=== PATIENT | male | born 1995 | race African-American/Black ===

== ENCOUNTER 2020-11-23 03:50 | Emergency (ER) | payer MEDICAID, OTHER ==
[2020-11-23] MEDS ORDERED: DOXY100C2 MT (06:39)
== END 2020-11-23 04:51 | disposition left against medical advice (07) ==
LOC: ER 03:50
DX: R68.89 Other general symptoms and signs (principal); Z53.21 Procedure and treatment not carried out due to patient leaving prior to being seen by health care provider

== ENCOUNTER 2020-11-23 05:27 | Emergency (ER) | payer MEDICAID ==
[~2020-11-23] VITALS: Ht 167.6 cm; Wt 76.0 kg
[2020-11-23 06:00] VITALS: BP 136/81
[2020-11-23] MEDS ORDERED: DOXY100C2 MT (06:39)
[2020-11-23] MEDS ORDERED: DOXYCYCLINE HYCLATE 100MG CAPSULE PO ONE (06:45)
== END 2020-11-23 07:02 | disposition home or self-care (01) ==
LOC: ER 05:27
DX: S80.861A Insect bite (nonvenomous), right lower leg, initial encounter (principal); W57.XXXA Bitten or stung by nonvenomous insect and other nonvenomous arthropods, initial encounter; Y93.89 Activity, other specified; Y92.89 Other specified places as the place of occurrence of the external cause; Y99.8 Other external cause status; F31.9 Bipolar disorder, unspecified
CPT/HCPCS: 99283

== ENCOUNTER 2021-02-22 16:54 | Emergency (ER) | payer MEDICAID ==
[~2021-02-22] VITALS: Ht 172.7 cm; Wt 77.0 kg
[~2021-02-22 16:54] MED LIST: DOXY100C2 MT
[2021-02-22] MEDS ORDERED: TETANUS, DIPHTHERIA, PERTUSSIS VAC/PF 0.5ML (>7YR OLD) IM ONE (19:15)
[2021-02-22] MEDS ORDERED: BACITRACIN ZINC OINT UDPKT TOP ONE (19:15)
[2021-02-22] MEDS ORDERED: LIDOCAINE HCL/PF 1% 10 MG/ML 5ML VIAL INFIL ONE (19:15)
[2021-02-22] MEDS ORDERED: CLIN300C12 MT (20:07)
[2021-02-22 20:15] VITALS: BP 115/84
== END 2021-02-22 20:16 | disposition home or self-care (01) ==
LOC: ER 16:54
DX: L02.512 Cutaneous abscess of left hand (principal)
CPT/HCPCS: 90471; 90715; 99283; J3490; Z7610

== ENCOUNTER 2022-07-16 23:17 | Emergency (ER) | payer MEDICAID, OTHER ==
[~2022-07-16] VITALS: Ht 170.2 cm; Wt 63.6 kg
[~2022-07-16 23:17] MED LIST changes: +CLIN-194 MT; -DOXY100C2 MT; +DOXY100C5 MT
[2022-07-16 23:44] VITALS: BP 121/80
== END 2022-07-17 02:15 | disposition home or self-care (01) ==
LOC: ER 23:17
DX: M79.641 Pain in right hand (principal); Y04.0XXA Assault by unarmed brawl or fight, initial encounter; Y93.89 Activity, other specified; Y92.89 Other specified places as the place of occurrence of the external cause
CPT/HCPCS: 73130; 99283